=== PATIENT | female | born 1955 | race Caucasian/White ===

== ENCOUNTER 2019-05-25 10:03 | Emergency (ER) | payer MEDICARE, OTHER ==
[~2019-05-25] VITALS: Ht 162.6 cm; Wt 54.4 kg
[2019-05-25 10:03] VITALS: BP 131/76
--- NOTE | 2019-05-25 10:03 | NUR ---
Patient BIBA ALS from [facility], transferred to bed 7. RN evaluating patient at bedside.
--- NOTE | 2019-05-25 10:10 | NUR ---
64 Y/O F BIBA C/O SOB. PT UNABLE TO TAKE DEEP BREATHS, STATES NO PAIN, STARTED THIS MORNING. PT DENIES N/V/D. PT PUT ON 2 L 02 NC, POSITOINED HIGH FOWLERS, 02 95%. PT IS PALE IN COLOR, WITH DISTRESS. PT BED LOWERED, X2 SIDE RAILS IN PLACE. ALLERGIES: NSAIDS
--- NOTE | 2019-05-25 10:11 | NUR ---
Dr. Tobias is evaluating the patient at bedside.
--- NOTE | 2019-05-25 10:13 | NUR ---
EMT AT BEDSIDE PERFORMING EKG.
--- NOTE | 2019-05-25 10:15 | NUR ---
LAB AT BEDSIDE DRAWING ORDERED LABS.
[2019-05-25] MEDS ORDERED: FERR-252 PO (10:19)
[2019-05-25] MEDS ORDERED: ASCO500T45 PO (10:19)
[2019-05-25] MEDS ORDERED: PUL.25N INH (10:19)
[2019-05-25] MEDS ORDERED: BISO5TAB PO (10:19)
[2019-05-25] MEDS ORDERED: FURO-572 PO (10:19)
[2019-05-25] MEDS ORDERED: PRON INH (10:19)
[2019-05-25] MEDS ORDERED: POTA10TE30 PO (10:19)
[2019-05-25] MEDS ORDERED: WARF3TAB PO (10:19)
[2019-05-25] MEDS ORDERED: HAL1 PO (10:19)
[2019-05-25] MEDS ORDERED: FOLI1TAB90 PO (10:19)
[2019-05-25] MEDS ORDERED: NACL 0.9% 1,000 ML IV ONE (10:20)
[2019-05-25] MEDS ORDERED: DILTIAZEM 125 MG in DEXTROSE 5% 100 ML IV ONE (10:25)
[2019-05-25] MEDS ORDERED: DIGOXIN 0.25 MG/ML AMP IV ONE (10:25)
[2019-05-25 10:45] LABS: BASOPHILS # (AUTO) 0.1 K/uL (0.00-0.22); EOSINOPHILS % (AUTO) 0.3 % (0.0-4.0); HEMATOCRIT 41.9 % (36-48); HEMOGLOBIN 13.3 g/dL (12.0-16.0); LYMPHOCYTES # (AUTO) 1.4 K/uL (2.5-16.5); MEAN CORPUSCULAR HEMOGLOBIN 27 pg (27-31); MEAN CORPUSCULAR HGB CONC 32 g/dL (33-37); MEAN CORPUSCULAR VOLUME 85.9 fL (80-94); MONOCYTES # (AUTO) 0.9 K/uL (0.8-1.0); MONOCYTES % (AUTO) 11.8 % (1.7-9.3); NEUTROPHILS # (AUTO) 5.4 K/uL (1.8-7.7); NEUTROPHILS % (AUTO) 68.9 % (42.2-75.2); PLATELET COUNT (AUTO) 315 K/uL (140-450); RED BLOOD CELL COUNT(AUTO) 4.88 MIL/uL (4.20-5.40); RED CELL DISTRIBUTION WIDTH 17.1 % (11.6-13.7); WHITE BLOOD COUNT (AUTO) 7.8 K/uL (4.8-10.8)
[2019-05-25 11:00] LABS: ANION GAP 19.6 (8-16); CARBON DIOXIDE 21.9 mmol/L (21-32); CREATININE 1.2 mg/dL (0.6-1.3); POTASSIUM 4.5 mmol/L (3.5-5.1)
[2019-05-25 11:02] LABS: ACETONE, SERUM NEGATIVE (NEGATIVE)
[2019-05-25 11:09] LABS: C-REACTIVE PROTEIN QUANT 6.3 mg/dL (0.0-0.9)
[2019-05-25 11:15] LABS: ALBUMIN 2.8 g/dL (3.4-5.0); TOTAL BILIRUBIN 2.2 mg/dL (0.0-1.0)
[2019-05-25 11:17] LABS: MAGNESIUM 2.3 mg/dL (1.8-2.4); THYROID STIMULATING HORMONE 12.59 uIU/mL (0.34-3.74)
[2019-05-25] MEDS ORDERED: DILTIAZEM 25 MG/5 ML VIAL IVP ONE ×2 (11:25)
[2019-05-25 11:45] LABS: PROTHROMBIN TIME 33.7 secs (10.8-13.4)
--- NOTE | 2019-05-25 12:05 | NUR ---
Dr. Tobias is re-evaluating the patient at bedside.
--- NOTE | 2019-05-25 12:07 | NUR ---
PT UA DONE, HCG NEGATIVE.
--- NOTE | 2019-05-25 12:08 | NUR ---
XRAY AT BEDSIDE.
--- NOTE | 2019-05-25 12:08 | NUR ---
shipping technician at bedside.
[2019-05-25 12:28] LABS: APPEARANCE,URINE SL CLOUDY (CLEAR); BILIRUBIN,URINE 1+ (NEGATIVE); BLOOD, URINE NEGATIVE (NEGATIVE); COLOR,URINE DARK YELLOW (YELLOW); LEUKOCYTE ESTERASE ,URINE NEGATIVE (NEGATIVE); NITRITE, URINE POSITIVE (NEGATIVE); UGLUCOSE NEGATIVE (NEGATIVE)
[2019-05-25 12:36] LABS: BARBITURATE, URINE NEG. ng/ml (NEG <=200); BENZODIAZEPINE, URINE NEG. ng/mL (NEG <=200); CANNABINOID, URINE POS. ng/mL (NEG <=50); COCAINE, URINE NEG. ng/mL (NEG <=300); OPIATE, URINE NEG. ng/mL (NEG <=2000); PHENCYCLIDINE SCREEN,URINE NEG. ng/mL (NEG <=25)
[2019-05-25 12:43] LABS: RBC,URINE 0-5 /HPF (0-5); WBC,URINE 0-5 /HPF (0-5)
[2019-05-25 12:44] LABS: HYALINE CASTS, URINE 0-10 /LPF (None Seen)
[2019-05-25 12:48] LABS: URINE AMORPHOUS URATE 1+ /HPF (None Seen)
[2019-05-25] MEDS ORDERED: PIPERACILLIN/TAZOBACTAM 3.375 GM in DEXTROSE 5% 50 ML IV ONE (13:00)
[2019-05-25] MEDS ORDERED: ALBUMIN HUMAN 25% 50 ML IV ONE (13:00)
[2019-05-25] MEDS ORDERED: PIPERACILLIN/TAZOBACTAM 3.375 GM VIAL IV ONE (13:14)
--- NOTE | 2019-05-25 13:45 | NUR ---
PT BLOOD PRESSURE RECHECKED RT ARM, 95/63. CATHETER PLACEMENT CHECKED, CLEAR, YELLOW URINE DRAINING INTO BAG ATTACHED TO SIDE RAIL, 60ML COLLECTED. PT GIVEN APPLE JUICE AND APPLE SAUCE, EATING, DRINKING WITHOUT DIFFICULTY. IV NS AND ZOSYN RUNNING WITHOUT ADVERSE AFFECT. PT POSITIONED FOR COMFORT.
--- NOTE | 2019-05-25 14:23 | NUR ---
LAB AT BEDSIDE DRAWING ORDERED LAB WORK.
--- NOTE | 2019-05-25 16:43 | NUR ---
PT REPOSITIONED IN BED, [address], IV RUNNING WITH NS. IV SITE CLEAN, DRY, INTACT. PT GIVEN APPLE JUICE/CRACKERS/APPLESAUCE.
--- NOTE | 2019-05-25 17:09 | NUR ---
[facility] at bedside for transfer to [facility].
[2019-05-25 17:40] VITALS: BP 93/65
--- NOTE | 2019-05-25 17:41 | NUR ---
Patient to be transferred to [facility]. Is being transferred due to INSURANCE. Receiving facility has accepting physician and available space. ER physician has signed transfer form. Patient or responsible constitution party has agreed to transfer and signed form. Patient belongings inventoried and will be sent with patient. Copy of nursing notes, lab reports, EKG, Physicians Orders and X-rays to be sent with patient. Report called to OSMAN VELEZ at receiving facility. EMS ambulance service has been called for transfer. ETA is 1700.
--- NOTE | 2019-06-11 09:21 | NUR ---
Late entry. Confirmed with RN that Zosyn IV completed at 1430
== END 2019-05-25 17:41 | disposition short-term general hospital (02) ==
LOC: MED 10:03
DX: I50.9 Heart failure, unspecified (principal); I11.0 Hypertensive heart disease with heart failure; R00.0 Tachycardia, unspecified; I48.0 Paroxysmal atrial fibrillation; E87.2 Acidosis; E87.3 Alkalosis; R94.6 Abnormal results of thyroid function studies; F17.210 Nicotine dependence, cigarettes, uncomplicated; J44.9 Chronic obstructive pulmonary disease, unspecified; Z66 Do not resuscitate; Z98.890 Other specified postprocedural states; Z79.899 Other long term (current) drug therapy; Z88.8 Allergy status to other drugs, medicaments and biological substances
CPT/HCPCS: 36415; 36600; 51702; 71045; 80053; 80305; 81001; 82009; 82803; 83605; 83735; 83880; 84443; 84484; 85025; 85379; 85610; 86140; 87040; 87086; 93005; 96365; 96375; 99291; G0482; J1160; J2543; J3490; J7030; J7060; Q0092; P9046

== ENCOUNTER 2019-06-10 02:36 | Emergency (ER) | payer MEDICARE, OTHER ==
[~2019-06-10] VITALS: Ht 162.6 cm; Wt 81.6 kg
[~2019-06-10 02:36] MED LIST: ASCO500T45 PO; BISO5TAB PO; FERR-252 PO; FOLI1TAB90 PO; FURO-572 PO; HAL1 PO; POTA10TE30 PO; PRON INH; PUL.25N INH; WARF3TAB PO
[2019-06-10] MEDS ORDERED: DILTIAZEM 25 MG/5 ML VIAL IVP ONE ×3 (02:40→11:55)
[2019-06-10] MEDS ORDERED: NACL 0.9% 500 ML IV SCH (02:40)
[2019-06-10 02:45] VITALS: BP 202/172
--- NOTE | 2019-06-10 02:45 | NUR ---
PT C/O SOB ADN C/P X 1 DAY. PT STATES NOT FEELING WELL, DOCTOR AT [facility] EXTRENDED NOT LISTENING TO HER. PT CALLED 911 FOR SOB, EMS STATE PT IN A-FIB RVR AT 170. PT SOB, PT PLACED ON 2 LPM BY EMS. PT HAS HX OF A-FIB. 18G RIGHT AC STARTED BY EMS. PT APPEARS TO BE IN MILD DISTRESS. PT DEEP LABORED BREATHING. PT LUNGS CLEAR. 12 LEAD BY EMS AND HOSPTIAL SHOWING A-BIF RVR. DR. YORK MADE AWARE OF PT CONDITION. PT GIVEN 20MG OF CARDIZEM. PT HR IMPROVED TO 100S. PT STATES NOT FEELING SOB ANYMORE. PT BP IMPROVED WELL.
[2019-06-10 04:16] LABS: BASOPHILS # (AUTO) 0.1 K/uL (0.00-0.22); BASOPHILS % (AUTO) 1.4 % (0.0-2.0); EOSINOPHILS % (AUTO) 0.1 % (0.0-4.0); HEMATOCRIT 41.2 % (36-48); HEMOGLOBIN 12.9 g/dL (12.0-16.0); LYMPHOCYTES # (AUTO) 1.6 K/uL (2.5-16.5); LYMPHOCYTES % (AUTO) 20.1 % (20.5-51.1); MEAN CORPUSCULAR HEMOGLOBIN 26 pg (27-31); MEAN CORPUSCULAR HGB CONC 31 g/dL (33-37); MEAN CORPUSCULAR VOLUME 84.3 fL (80-94); MONOCYTES # (AUTO) 0.8 K/uL (0.8-1.0); MONOCYTES % (AUTO) 10.8 % (1.7-9.3); NEUTROPHILS # (AUTO) 5.3 K/uL (1.8-7.7); NEUTROPHILS % (AUTO) 67.6 % (42.2-75.2); PLATELET COUNT (AUTO) 215 K/uL (140-450); RED BLOOD CELL COUNT(AUTO) 4.88 MIL/uL (4.20-5.40); RED CELL DISTRIBUTION WIDTH 18.2 % (11.6-13.7); WHITE BLOOD COUNT (AUTO) 7.9 K/uL (4.8-10.8)
--- NOTE | 2019-06-10 04:22 | NUR ---
PT APPEARS TO BE IN NO DISTRESS. PT STATES FEELING BETTER. PT DENIES SOB AT THIS TIME. PT HR 100S. PT PLAYING ON IPAD. PT VSS. LETY MCCALL PT FOR URINE SAMPLE.
[2019-06-10 04:28] LABS: APPEARANCE,URINE CLEAR (CLEAR); BILIRUBIN,URINE NEGATIVE (NEGATIVE); BLOOD, URINE NEGATIVE (NEGATIVE); COLOR,URINE YELLOW (YELLOW); LEUKOCYTE ESTERASE ,URINE NEGATIVE (NEGATIVE); NITRITE, URINE POSITIVE (NEGATIVE); PH,URINE 5.5 (5.0-9.0); UGLUCOSE NEGATIVE (NEGATIVE)
[2019-06-10 04:36] LABS: PROTHROMBIN TIME 22.9 secs (10.8-13.4)
--- NOTE | 2019-06-10 04:45 | NUR ---
PT HR INCREASING TO 130s. DR. TUTTLE MADE AWARE
[2019-06-10 04:47] LABS: RBC,URINE 0-5 /HPF (0-5); WBC,URINE 0-5 /HPF (0-5)
[2019-06-10] MEDS ORDERED: DILTIAZEM 30 MG TAB PO ONE (04:50)
[2019-06-10 04:55] LABS: ANION GAP 16.4 (8-16); CARBON DIOXIDE 22.8 mmol/L (21-32); CREATININE 0.9 mg/dL (0.6-1.3); POTASSIUM 4.2 mmol/L (3.5-5.1)
[2019-06-10 05:01] LABS: ALBUMIN 2.4 g/dL (3.4-5.0); TOTAL BILIRUBIN 1.6 mg/dL (0.0-1.0)
[2019-06-10] MEDS ORDERED: ASPIRIN 81 MG TAB.CHEW PO ONE (05:20)
--- NOTE | 2019-06-10 05:24 | NUR ---
PT GOINGTO BE TRANSFERRED TO [facility]. PT APPEARS TO BE IN NO DISTRESS. VSS. PT HR NOW 98-105. PT BP 103/63. PT DENIES SOB. VSS. WILL CONTINUE TO MONIOR.
[2019-06-10] MEDS ORDERED: LEVOFLOXACIN 500 MG/D5W PREMIX 100 ML IV ONE (05:25)
--- NOTE | 2019-06-10 06:30 | NUR ---
PT APPEARS TO BE IN NO DISTRESS AT RHIS TIME. VSS. NO CHANGES FROM PREVIOUS ASSESSMENT. WAITING FOR TRANSPORT.
--- NOTE | 2019-06-10 07:11 | NUR ---
REPORT GIVEN TO STEFANIA BREWER
--- NOTE | 2019-06-10 09:12 | NUR ---
ALERT ORIENTED X 4 PT ON O2 @ 3LPM, SPO2 96% ON 3LPM VIA NC, CANDIDO SOB OR CP, RR 20 EVEN AND EQUAL, HR 121, BP 101/72 ON MONITOR, INFORMED OF TRANSFER TO [facility] WILL CONTINUE TO MONITOR
--- NOTE | 2019-06-10 09:36 | NUR ---
REPORT GIVEN TO OSMAN MARTINEZ FROM [facility] . ACCEPTING MD DR Marlene RAO. PT GOING TO ROOM # 5365-V
--- NOTE | 2019-06-10 11:31 | NUR ---
[facility] CALLED ETA CHANGED FROM 1010 TO 1200 NOON D/T HIGH VOLUME CALL PT AND PT'S DAUGHTER ROXI NOTIFIED. [facility] WILL BE NOTIFIED UPON [facility] ARRIVAL.
[2019-06-10] MEDS ORDERED: NACL 0.9% 1,000 ML IV ONE (11:55)
--- NOTE | 2019-06-10 12:32 | NUR ---
fidelina on hold d/t bp notified
--- NOTE | 2019-06-10 12:45 | NUR ---
STILL WAITING FOR [facility] FOR TRANSPORT TO [facility]
--- NOTE | 2019-06-10 13:01 | NUR ---
Patient to be transferred to [facility]. Is being transferred due to need higher level of care. Receiving facility has accepting physician and available space. ER physician has signed transfer form. Patient or responsible green party has agreed to transfer and signed form. Patient belongings inventoried and will be sent with patient. Copy of nursing notes, lab reports, EKG, Physicians Orders and X-rays to be sent with patient. Report called to OSMAN Fierro at receiving facility [facility]. Report given to OSMAN Faustin from [facility]. OSMAN Fierro at [facility] updated.
[2019-06-10 13:04] VITALS: BP 96/73
--- NOTE | 2019-06-13 08:40 | NUR ---
Late entry. Confirmed with RN that 0.9 NS IV completed at 1300
== END 2019-06-10 13:01 | disposition short-term general hospital (02) ==
LOC: MED 02:36
DX: I48.20 Chronic atrial fibrillation, unspecified (principal); I50.9 Heart failure, unspecified; R79.89 Other specified abnormal findings of blood chemistry; N39.0 Urinary tract infection, site not specified; J44.9 Chronic obstructive pulmonary disease, unspecified; I10 Essential (primary) hypertension; Z79.899 Other long term (current) drug therapy; Z88.8 Allergy status to other drugs, medicaments and biological substances
CPT/HCPCS: 36415; 36600; 71045; 80053; 81001; 82803; 83605; 83880; 84484; 85025; 85610; 85730; 87040; 87086; 93005; 96365; 96375; 96376; 99285; J1956; J3490; J7030; Q0092

== ENCOUNTER 2019-06-30 19:47 | Inpatient (IN) | payer MEDICARE, OTHER ==
[~2019-06-30] VITALS: Ht 160 cm; Wt 68.5 kg
--- NOTE | 2019-06-30 19:51 | NUR ---
PT TAKEN TO BED 2
[2019-06-30 19:56] VITALS: BP 123/69
--- NOTE | 2019-06-30 20:20 | NUR ---
PATIENT DOES NOT HAVE BILATERAL PITTING EDEMA, MISTAKE IN CHARTING
--- NOTE | 2019-06-30 20:20 | NUR ---
64 YEAR OLD FEMALE BIBA FOR COMPLAINS OF NON-RADIATING CHEST PAIN X2 HOURS. PATIENT STATES PAIN IS CONTINOUS SQUEEZING FEELING. PT DENIES SOB, DENIES N/V. NSR PER EMS. PATIENT HAS BILATERAL PITTING EDEMA LOWER EXTREMITIES. HR 94, SPO2 98%, RR 20. PATIENT AOX4, BREATHING EVEN AND UNLABORED, SKIN WARM AND DRY. BED IN LOWEST POSITION, LOCKED, BED RAIL UPX1.
--- NOTE | 2019-06-30 20:35 | NUR ---
EKG PERFORMED AT BEDSIDE
[2019-06-30 21:55] LABS: BASOPHILS # (AUTO) 0.1 K/uL (0.00-0.22); EOSINOPHILS # (AUTO) 0.1 K/uL (0-0.4); EOSINOPHILS % (AUTO) 0.8 % (0.0-4.0); HEMOGLOBIN 12.6 g/dL (12.0-16.0); LYMPHOCYTES # (AUTO) 2.1 K/uL (2.5-16.5); LYMPHOCYTES % (AUTO) 25.2 % (20.5-51.1); MEAN CORPUSCULAR HEMOGLOBIN 26 pg (27-31); MEAN CORPUSCULAR HGB CONC 32 g/dL (33-37); MEAN CORPUSCULAR VOLUME 82.5 fL (80-94); MONOCYTES # (AUTO) 1.2 K/uL (0.8-1.0); MONOCYTES % (AUTO) 13.8 % (1.7-9.3); NEUTROPHILS % (AUTO) 59.2 % (42.2-75.2); PLATELET COUNT (AUTO) 215 K/uL (140-450); RED BLOOD CELL COUNT(AUTO) 4.85 MIL/uL (4.20-5.40); RED CELL DISTRIBUTION WIDTH 18.3 % (11.6-13.7); WHITE BLOOD COUNT (AUTO) 8.4 K/uL (4.8-10.8)
[2019-06-30 22:33] LABS: ALBUMIN 2.6 g/dL (3.4-5.0); ANION GAP 12.2 (8-16); CARBON DIOXIDE 28.9 mmol/L (21-32); CREATININE 0.8 mg/dL (0.6-1.3); POTASSIUM 4.1 mmol/L (3.5-5.1); TOTAL BILIRUBIN 0.6 mg/dL (0.0-1.0)
--- NOTE | 2019-06-30 22:56 | NUR ---
PATIENT RESTING WITH EYES CLOSED, BREATHING EVEN AND UNLABORED
[2019-06-30] MEDS ORDERED: NACL 0.9% 1,000 ML IV SCH (23:46)
[2019-06-30] MEDS ORDERED: DOCUSATE SODIUM 100 MG GELCAP PO PRN (23:50)
[2019-06-30] MEDS ORDERED: MORPHINE SULFATE 2 MG/ML SYR IVP PRN (23:50)
[2019-06-30] MEDS ORDERED: HYDROcodone/APAP 5/325 MG 1 TAB TAB PO PRN (23:50)
[2019-06-30] MEDS ORDERED: ONDANSETRON 4 MG/2 ML VIAL IM/IVP PRN (23:50)
[2019-06-30] MEDS ORDERED: ACETAMINOPHEN 325 MG TAB PO PRN (23:50)
[2019-07-01 01:25] LABS: APPEARANCE,URINE CLOUDY (CLEAR); BILIRUBIN,URINE NEGATIVE (NEGATIVE); BLOOD, URINE NEGATIVE (NEGATIVE); COLOR,URINE YELLOW (YELLOW); LEUKOCYTE ESTERASE ,URINE 1+ (NEGATIVE); NITRITE, URINE POSITIVE (NEGATIVE); PH,URINE 7.5 (5.0-9.0); UGLUCOSE NEGATIVE (NEGATIVE)
[2019-07-01 01:31] LABS: BARBITURATE, URINE NEG. ng/ml (NEG <=200); BENZODIAZEPINE, URINE NEG. ng/mL (NEG <=200); CANNABINOID, URINE NEG. ng/mL (NEG <=50); COCAINE, URINE NEG. ng/mL (NEG <=300); OPIATE, URINE NEG. ng/mL (NEG <=2000); PHENCYCLIDINE SCREEN,URINE NEG. ng/mL (NEG <=25)
[2019-07-01 01:38] LABS: MAGNESIUM 1.9 mg/dL (1.8-2.4); PHOSPHORUS 3.3 mg/dL (2.5-4.9); THYROID STIMULATING HORMONE 8.86 uIU/mL (0.34-3.74)
--- NOTE | 2019-07-01 01:40 | NUR ---
0.9 NACL ADMINISTERED ORDERED
[2019-07-01 01:52] LABS: PROTHROMBIN TIME 15.7 secs (10.8-13.4)
[2019-07-01 01:55] LABS: RBC,URINE 0-5 /HPF (0-5)
--- NOTE | 2019-07-01 02:30 | NUR ---
PATIENT RESTING WITH EYES CLOSED, BREATHING EVEN AND UNLABORED
[2019-07-01] MEDS ORDERED: VALP250S5 PO (03:05)
[2019-07-01] MEDS ORDERED: ALBU3SOL83 IH (03:05)
[2019-07-01] MEDS ORDERED: WARF3TAB PO ×2 (03:07→11:35)
[2019-07-01] MEDS ORDERED: DOCU250S72 PO (03:07)
[2019-07-01] MEDS ORDERED: PUL.5N INH ×2 (03:09→11:35)
--- NOTE | 2019-07-01 03:50 | NUR ---
PATIENT RESTING WITH EYES CLOSED, BREATHING EVEN AND UNLABORED
--- NOTE | 2019-07-01 05:30 | NUR ---
PATIENT ALERT AND ORIENTED, BREATHING EVEN AND UNLABORED
[2019-07-01] MEDS ORDERED: NITROGLYCERIN 0.4 MG TAB SL PRN (06:00)
--- NOTE | 2019-07-01 06:30 | NUR ---
PATIENT ALERT AND ORIENTED, BREATHING EVEN AND UNLABORED
[2019-07-01 06:42] LABS: BASOPHILS # (AUTO) 0.1 K/uL (0.00-0.22); BASOPHILS % (AUTO) 1.1 % (0.0-2.0); EOSINOPHILS # (AUTO) 0.1 K/uL (0-0.4); EOSINOPHILS % (AUTO) 0.9 % (0.0-4.0); HEMATOCRIT 40.5 % (36-48); HEMOGLOBIN 12.7 g/dL (12.0-16.0); LYMPHOCYTES # (AUTO) 1.9 K/uL (2.5-16.5); LYMPHOCYTES % (AUTO) 25.7 % (20.5-51.1); MEAN CORPUSCULAR HEMOGLOBIN 26 pg (27-31); MEAN CORPUSCULAR HGB CONC 31 g/dL (33-37); MEAN CORPUSCULAR VOLUME 82.7 fL (80-94); MONOCYTES # (AUTO) 0.9 K/uL (0.8-1.0); MONOCYTES % (AUTO) 12.6 % (1.7-9.3); NEUTROPHILS # (AUTO) 4.4 K/uL (1.8-7.7); NEUTROPHILS % (AUTO) 59.7 % (42.2-75.2); PLATELET COUNT (AUTO) 217 K/uL (140-450); RED CELL DISTRIBUTION WIDTH 18.2 % (11.6-13.7); WHITE BLOOD COUNT (AUTO) 7.4 K/uL (4.8-10.8)
[2019-07-01 06:59] LABS: ANION GAP 12.4 (8-16); CARBON DIOXIDE 26.7 mmol/L (21-32); CREATININE 0.7 mg/dL (0.6-1.3); POTASSIUM 4.1 mmol/L (3.5-5.1)
[2019-07-01 07:03] LABS: CHOL/HDL RATIO 2.5 (1-4.5)
[2019-07-01 07:25] VITALS: BP 95/73
--- NOTE | 2019-07-01 07:25 | NUR ---
RECEIVED PATIENT FROM FURNITURE RENTAL CONSULTANT NURSEMARIMAR, VIA [facility]. PATIENT AMBULATED TO THE ROOM. PATIENT IS AAOX2. RESPIRATIONS EVEN AND UNLABORED, ON ROOM AIR. VISIBLE CHEST RISE NOTED. ON TELE MONITORING. ABDOMEN SOFT AND NONTENDER. SKIN INTACT, WARM AND DRY. IV ON THE RIGHT HAND G22, SALINE LOCK. IV PATENT AND INTACT. PATIENT IS AMBULATORY. BED IN LOW POSITION. CALL LIGHT IS WITHIN REACH. WILL CONTINUE TO MONITOR
--- NOTE | 2019-07-01 07:25 | NUR ---
Patient will be admitted to care of DR CAAL. Admited to TELE. Will go to room 112B. Belongings list completed. Report to PRINCESS BREWER.
--- NOTE | 2019-07-01 07:28 | NUR ---
VITAL SIGNS TAKEN. MRSA NARES COLLECTED
[2019-07-01] MEDS ORDERED: hePARIN / DEXT 5% PREMIX 250 ML IV SCH (08:00)
[2019-07-01] MEDS ORDERED: HEPARIN PER PHARMACY MC PRN (08:00)
[2019-07-01] MEDS ORDERED: ASPIRIN 81 MG TAB.CHEW PO SCH (09:00)
[2019-07-01] MEDS: ATORVASTATIN 20 MG TAB PO SCH (09:00)
[2019-07-01] MEDS: METOPROLOL 25 MG TAB PO SCH ×2 (09:00→21:00)
[2019-07-01] MEDS: LISINOPRIL 5 MG TAB PO SCH (09:00)
[2019-07-01] MEDS: hePARIN / DEXT 5% PREMIX 250 ML IV SCH ×2 (09:58→19:51)
--- NOTE | 2019-07-01 10:15 | NUR ---
STARTED HEPARIN DRIP 700 UNITS/HR IN THE LEFT HAND IV. BOLUS OF 3500 UNITS. EXPLAINED TO PATIENT MEDICATION. PATIENT VERBALIZED UNDERSTANDING. HELD BP MEDS BECAUSE PT. BP IS 95/73. ALSO STARTED IV IN THE RIGHT AC G20, RUNNING NS AT 60 ML/HR
--- NOTE | 2019-07-01 10:40 | NUR ---
CHECKED PATIENT. NO SIGNS OF BLEEDING NOTED. PATIENT DENIES CHEST PAIN. BED IN LOW. CALL LIGHT IS WITHIN REACH. WILL CONTINUE TO MONITOR
[2019-07-01] MEDS: FUROSEMIDE 40 MG/4 ML VIAL IVP SCH (10:46)
--- NOTE | 2019-07-01 10:47 | NUR ---
GIVEN LASIX VIA IVP. EXPLAINED TO PATIENT MED. BP: 110/64, HR 56;. PATIENT VERBALIZED UNDERSTANDING. BED IN LOW POSITION. CALL LIGHT IS WITHIN REACH. WILL CONTINUE TO MONITOR.
[2019-07-01] MEDS ORDERED: FURO-572 PO (11:35)
[2019-07-01] MEDS ORDERED: POTA10TE30 PO (11:35)
[2019-07-01] MEDS ORDERED: FOLI1TAB90 PO (11:35)
[2019-07-01] MEDS ORDERED: BISO5TAB PO (11:35)
[2019-07-01] MEDS ORDERED: FERR-252 PO (11:35)
[2019-07-01] MEDS ORDERED: PRON INH (11:35)
[2019-07-01] MEDS ORDERED: ASCO500T45 PO (11:35)
[2019-07-01] MEDS ORDERED: ALBUTEROL 0.083% 2.5 MG/3 ML NEBU INH PRN (11:45)
[2019-07-01] MEDS ORDERED: ALBUTEROL SULFATE/IPRATROPIU 3 ML SOL IH PRN (11:45)
--- NOTE | 2019-07-01 11:49 | NUR ---
HANG ROCEPHIN VIA IVPB. EXPLAINED TO PATIENT MED. PATIENT VERBALIZED UNDERSTANDING. WILL CONTINUE TO MONITOR
[2019-07-01] MEDS: DEXT 5% /NACL 0.9% 1,000 ML IV SCH (11:55)
[2019-07-01 12:00] VITALS: BP 110/68
--- NOTE | 2019-07-01 13:12 | NUR ---
CHANGED IVF FROM NS TO D51/2NS AT 60 ML/HR.
--- NOTE | 2019-07-01 14:04 | NUR ---
PATIENT IS AWAKE. DENIES CHEST PAIN. DAUGHTER AT BEDSIDE. BED IN LOW POSITION. CALL LIGHT IS WITHIN REACH. WILL CONTINUE TO MONITOR
--- NOTE | 2019-07-01 14:59 | NUR ---
PATIENT IS SLEEPING AT THIS TIME. NO SIGNS OF BLEEDING. NO SIGNS OF DISTRESS NOTED. DAUGHTER AT BEDSIDE. WILL CONTINUE TO MONITOR
[2019-07-01 16:00] VITALS: BP 117/95
--- NOTE | 2019-07-01 16:12 | NUR ---
VITAL SIGNS TAKEN. PATIENT DENIES PAIN. BED IN LOW POSITION. CALL LIGHT IS WITHIN REACH. WILL CONTINUE TO MONITOR
--- NOTE | 2019-07-01 16:23 | NUR ---
MADE ROUNDS. PATIENT DENIES CHEST PAIN. NO BLEEDING NOTED ANYWHERE. NO DISTRESS NOTED. BED IN LOW POSITION. CALL LIGHT IS WITHIN REACH. WILL CONTINUE TO MONITOR.
--- NOTE | 2019-07-01 17:08 | NUR ---
DC PLANNING FAXED THE POST STABILIZATION FORM TO [facility] [phone] Addendum: 07/02/19 at 1201 by Thi Quezada CM 0905: CONTACTED [facility] AT [phone], ABLE TO SPEAK TO REHAN PASCUAL. SHE STATED THEY DO NOT HAVE AN ASSIGNED DIRECTOR OF STRATEGIC MARKETING TO THE PATIENT UNTIL 929. POST STABILIZATION FORM FAXED WELL. 1145: CONTACTED [facility] AGAIN TO FOLLOW UP, ABLE TO SPEAK TO TANI PASCUAL. SHE STATED THE ASSIGNED DIRECTOR OF STRATEGIC MARKETING TODAY IS M[facility] HOWEVER SHE WILL TRANSFER ME TO REYNA PASCUAL. REYNA CONFIRMED THAT THEY RECEIVED THE PAPER WORKS I FAXED EARLIER. SHE STATED SHE WILL LET HER DIRECTOR OF STRATEGIC MARKETING KNOW AND THEY WILL START THE TRANSFER PROCESS. INFORMED HER THAT PATIENT IS ON HEPARIN DRIP AND CTA WAS ORDERED PENDING RESULT. SHE STATED ONCE WE GET THE RESULTS TO FAX IT OVER TO THEM. Addendum: 07/02/19 at 1218 by Thi Quezada CM RECEIVED A CALL FROM [facility] TO FOLLOW UP WITH THE CTA RESULTS. RESULTS FAXED TO [facility]. Addendum: 07/02/19 at 1734 by Jessica Olson 17:15 - Spoke to pt's nurse who stated [facility] called asking for an update on pt's condition (lab values, BP, results of CTA) 17:25 - Follow-up call made to [facility] Mimi BARAHONA, to follow-up on pt's transfer and authorization (last update stated case was denied). Per Shannon, she's still working on the transfer however they have no beds available. Shannon stated pt can possibly transfer to [facility]. Requested an update on authorization, per Shannon she's been busy transferring other patients. I requested an updated authorization to be faxed today; Will continue following up as needed. Jessica Olson, [facility] Ext [phone]
--- NOTE | 2019-07-01 18:42 | NUR ---
PATIENT IS REFUSING DINNER.
--- NOTE | 2019-07-01 19:10 | NUR ---
ENDORSED PATIENT TO COAL CHUTE WORKER NURSE FOR CONTINUITY OF CARE. PATIENT IS IN STABLE CONDITION.
--- NOTE | 2019-07-01 19:24 | NUR ---
PTT RESULTS IN. LOG CUT OFF SAWYER NURSE IS AWARE.
--- NOTE | 2019-07-01 19:25 | NUR ---
RECEIVED PT IN STABLE CONDITION FROM AM NURSE. AWAKE,ALERT AND ORIENTED X 4. BUT WITH PERIODS OF FORGETFULNESS/CONFUSION DUE TO DEMENTIA. ON TELE MONITOR. WITH UVF INFUSING ON THE LEFT AC G#20. AND HEPARIN DRIP ON THE RT FA g#22. PLAN OF CARE DISCUSSED AND VERBALIZED UNDERSTANDING. BED ON LOW POSITION. SIDE RAILS UP X2. CALL LIGHT PLACED WITHIN EASY REACH. BED ALARM ON. WILL CONTINUE TO MONITOR.
[2019-07-01] MEDS ORDERED: BUDESONIDE 0.5 MG/2 ML NEBU INH SCH ×2 (19:30→21:00)
--- NOTE | 2019-07-01 19:50 | NUR ---
PTT RESULT CAME 41.9 HEPARIN PROTOCOL FOLLOWED. NEXT PTT ORDERED FOR 0150.
[2019-07-01 21:00] VITALS: BP 99/55
[2019-07-01] MEDS: AMIODARONE 200 MG TAB PO SCH ×2 (21:00→22:24)
[2019-07-01] MEDS ORDERED: BISOPROLOL FUMARATE 5 MG PO SCH (21:00)
--- NOTE | 2019-07-01 22:20 | NUR ---
FABIAN GUO MADE AWARE THAT BP IS LOW 99/60. SHE SAID GO AHEAD AND GIVE THE AMIODARONE BUT HOLD THE LOPRESSOR.
--- NOTE | 2019-07-01 23:00 | NUR ---
PT CONFUSED. WANTS TO REMOVE IV . DR. PERALTA MADE AWARE. WITH ORDER.
[2019-07-01] MEDS ORDERED: OLANZapine 2.5 MG TAB PO SCH (23:30)
[2019-07-02] VITALS (8 sets, daily range): BP systolic 91–104; BP diastolic 43–73
--- NOTE | 2019-07-02 00:28 | NUR ---
PT REFUSED TO RKAE ZYPREXA EARLIER . BUT ABLE TO TAKE IT NOW. HAD SOME SODA WITH IT.
--- NOTE | 2019-07-02 01:55 | NUR ---
BLOOD WAS DRAWN FOR PTT. WILL FOLLOW UP RESULT.
--- NOTE | 2019-07-02 02:58 | NUR ---
LATEST PTT 45.6 NO CHANGE ON THE RATE. KEPT THE 800 UNITS /HR PER PROTOCOL. WILL ORDER NEXT PTT IN 6HRS W/C WILL BE 0750.
--- NOTE | 2019-07-02 05:20 | NUR ---
NEW IV ACCESS STARTED ON RT AC G#[address] . IV ACCESS CLEAR AND PATENT.
--- NOTE | 2019-07-02 05:30 | NUR ---
PT FOR CT ANGIO CHEST . PT SAID SHE HAD IV CONTRAST BEFORE AND SHE DIDN'T HAVE ANY REACTION. CONSENT SIGNED AFTER EXPLAINED THE PROCEDURE.
--- NOTE | 2019-07-02 05:50 | NUR ---
PHU,CLINICAL INFORMATICS PHYSICIAN MADE AWARE THAT PT IS READY FOR THE CT THIS AM.
--- NOTE | 2019-07-02 07:05 | NUR ---
ENDORSED PT IN STABLE CONDITION TO AM NURSE.
--- NOTE | 2019-07-02 07:15 | NUR ---
PATIENT IS AAOX2. RESPIRATIONS EVEN AND UNLABORED, ON ROOM AIR. VISIBLE CHEST RISE NOTED. PATIENT DENIES CHEST PAIN. ON TELE MONITORING. ABDOMEN SOFT AND NONTENDER. SKIN INTACT, WARM AND DRY. IV ON THE RIGHT HAND G22, RUNNING HEPARIN AT 800 UNITS/HR. IV IN THE LEFT RA G20 RUNNING FLUIDS WELL. IV IN THE RIGHT FOREARM G20, SALINE LOCK. IV PATENT AND INTACT. PATIENT IS AMBULATORY. BED IN LOW POSITION. CALL LIGHT IS WITHIN REACH. WILL CONTINUE TO MONITOR
[2019-07-02] MEDS ORDERED: FERROUS SULFATE 325 MG TABEC PO SCH (09:00)
[2019-07-02] MEDS: METOPROLOL 25 MG TAB PO SCH ×2 (09:00→21:00)
[2019-07-02] MEDS ORDERED: ASCORBIC ACID 500 MG TAB PO SCH (09:00)
[2019-07-02] MEDS ORDERED: POTASSIUM CHLORIDE 10 MEQ TABER PO SCH (09:00)
[2019-07-02] MEDS: ATORVASTATIN 20 MG TAB PO SCH (09:00)
[2019-07-02] MEDS: LISINOPRIL 5 MG TAB PO SCH (09:00)
[2019-07-02] MEDS ORDERED: FOLIC ACID 1 MG TAB PO SCH (09:00)
[2019-07-02] MEDS: FUROSEMIDE 40 MG/4 ML VIAL IVP SCH (09:00)
[2019-07-02 09:18] LABS: BASOPHILS # (AUTO) 0.1 K/uL (0.00-0.22); BASOPHILS % (AUTO) 1.5 % (0.0-2.0); EOSINOPHILS % (AUTO) 0.6 % (0.0-4.0); HEMATOCRIT 45.2 % (36-48); HEMOGLOBIN 14.3 g/dL (12.0-16.0); LYMPHOCYTES % (AUTO) 26.4 % (20.5-51.1); MEAN CORPUSCULAR HEMOGLOBIN 26 pg (27-31); MEAN CORPUSCULAR HGB CONC 32 g/dL (33-37); MEAN CORPUSCULAR VOLUME 82.5 fL (80-94); MONOCYTES # (AUTO) 0.9 K/uL (0.8-1.0); MONOCYTES % (AUTO) 11.4 % (1.7-9.3); NEUTROPHILS # (AUTO) 4.5 K/uL (1.8-7.7); NEUTROPHILS % (AUTO) 60.1 % (42.2-75.2); PLATELET COUNT (AUTO) 276 K/uL (140-450); RED BLOOD CELL COUNT(AUTO) 5.48 MIL/uL (4.20-5.40); RED CELL DISTRIBUTION WIDTH 17.9 % (11.6-13.7); WHITE BLOOD COUNT (AUTO) 7.5 K/uL (4.8-10.8)
--- NOTE | 2019-07-02 09:27 | NUR ---
GIVEN MORNING MEDICATIONS PO. EXPLAINED TO PATIENT MEDS. PATIENT VERBALIZED UNDERSTANDING. BED IN LOW POSITIN. CALL LIGHT IS WITHIN REACH. NO BLEEDING NOTED. NO CHEST PAIN.
[2019-07-02 09:41] LABS: ALBUMIN 2.9 g/dL (3.4-5.0); ANION GAP 15.5 (8-16); CARBON DIOXIDE 25.3 mmol/L (21-32); CREATININE 0.8 mg/dL (0.6-1.3); PHOSPHORUS 3.5 mg/dL (2.5-4.9); POTASSIUM 3.8 mmol/L (3.5-5.1); TOTAL BILIRUBIN 0.9 mg/dL (0.0-1.0)
[2019-07-02] MEDS ORDERED: AMIODARONE 200 MG TAB PO SCH (10:15)
--- NOTE | 2019-07-02 10:20 | NUR ---
PT. IS OFF TO CAT SCAN. RN ACCOMPANIED PATIENT BECAUSE OF HEPARIN DRIP.
--- NOTE | 2019-07-02 10:42 | NUR ---
PATIENT IS BACK FROM CT SCAN. PATIENT REQUESTED ORANGE JUICE. GAVE IT TO PATIENT
--- NOTE | 2019-07-02 10:45 | NUR ---
PTT RESULTS IN. 40.4. NO CHANGE IN RATE. CHARGE NURSE AWARE. NEXT PTT DRAW IS AT 7:50AM 07/03/19. Addendum: 07/02/19 at 1947 by Princess Roopa Jimenez RN PTT RESULTS IN 40.4. WILL FOLLOW PROTOCOL.
[2019-07-02] MEDS: DEXT 5% /NACL 0.9% 1,000 ML IV SCH (11:55)
--- NOTE | 2019-07-02 12:42 | NUR ---
HANG ROCEPHIN VIA IVPB. EXPLAINED TO PATIENT MED. PATIENT VERBALIZED UNDERSTANDING. PATIENT IS EATING LUNCH AT THIS TIME. DENIES CHEST PAIN. WILL CONTINUE TO MONITOR
--- NOTE | 2019-07-02 14:41 | NUR ---
PATIENT IS SLEEPING AT THIS TIME. VISIBLE CHEST RISE NOTED. BED IN LOW POSITION. CALL LIGHT IS WITHIN REACH. WILL CONTINUE TO MONITOR
--- NOTE | 2019-07-02 15:59 | NUR ---
DISCONTINUED LEFT AC IV SITE BECAUSE PATIENT C/O EXTREME PAIN IN THE AREA. APPLIED PRESSURE FOR 5 MINUTES
--- NOTE | 2019-07-02 16:24 | NUR ---
07/02/19 RD INITIAL ASSESSMENT COMPLETED PLEASE REFER TO NUTRITION ASSESSMENT UNDER CARE ACTIVITY FOR ESTIMATED NUTRITIONAL NEEDS. 1. CONTINUE CARDIAC DIET TOLERATED 2. PROVIDE FEEDING ASSISTANCE W/ MEALS 3. RD TO FOLLOW-UP 3-5 DAYS, MODERATE RISK ISMAEL FLETCHER RD
--- NOTE | 2019-07-02 16:56 | NUR ---
PATIENT IS RESTING AT THIS TIME. NO CHEST PAIN. NO SIGNS OF BLEEDING. WILL CONTINUE TO MONITOR. BED IN LOW POSITION. CALL LIGHT IS WITHIN REACH.
--- NOTE | 2019-07-02 17:07 | NUR ---
PATIENT PULLED IV IN THE LEFT FOREARM. MINIMAL BLEEDING
--- NOTE | 2019-07-02 18:18 | NUR ---
MAHAD ORELLANA OF [facility] CALLED REGARDING PT. TRANSFER TO [facility]. REYNA STATED THAT [facility] PT WILL BE UNDER DR. STANLEY. [facility] PHONE NUMBER IS: [phone]. REYNA'S PHONE NUMBER IS [phone].
--- NOTE | 2019-07-02 18:20 | NUR ---
CALLED REYNA BACK. PATIENT IS REQUESTING PERRYTON ROBBIE. REYNA IS TALKING TO LETY, PATIENT'S DAUGHTER REGARDING TRANSFER
--- NOTE | 2019-07-02 18:23 | NUR ---
PATIENT IS GOING TO [facility]. PATIENT AND FAMILY IS OKAY WITH PATIENT GOING TO [facility]. PATIENT PICKUP IS AT 2100.
[2019-07-02] MEDS ORDERED: AMIO200T10 PO (18:31)
[2019-07-02] MEDS ORDERED: LISI-424 PO (18:31)
[2019-07-02] MEDS ORDERED: METO25TA PO (18:31)
[2019-07-02] MEDS ORDERED: NITR0.4T1 SL (18:31)
[2019-07-02] MEDS ORDERED: HEPA-133 IV (18:31)
--- NOTE | 2019-07-02 18:34 | NUR ---
PATIENT IS GOING TO [facility] NOT [facility]. PT. AND FAMILY ARE AWARE. DR. PERALTA AND CHARGE NURSE ALSO AWARE.
[2019-07-02] MEDS: hePARIN / DEXT 5% PREMIX 250 ML IV SCH (19:18)
--- NOTE | 2019-07-02 19:18 | NUR ---
HANG NEW BAG OF HEPARIN. BOLUS OF 1800 UNITS OF HEPARIN IVP. RATE IS INCREASED TO 900 UNITS/HR.
--- NOTE | 2019-07-02 19:21 | NUR ---
ENDORSED PATIENT TO JAVA ANALYST NURSE FOR CONTINUITY OF CARE. PATIENT IS IN STABLE CONDITION
--- NOTE | 2019-07-02 19:22 | NUR ---
RECEIVED PT IN STABLE CONDITION FROM AM NURSE. AAO.4 WITH NO C/O ANY DISCOMFORT NOTED. TELE PT. WITH HEPARIN DRIP STILL INFUSING ON THE RT HAND G322. NO C/O ANY PAIN NOTED. PLAN OF CARE DISCUSSED AN VERBALIZED UNDERSTANDING. BED ON LOW POSITION. CALL LIGHT WITHIN REACH, FREQ ROUNDS NEEDED. SIDE RAILS UP X2. WILL CONTINUE TO MONITOR.
--- NOTE | 2019-07-02 20:30 | NUR ---
TRANSPORT TO NEUROLOGICAL SURGERY TEACHER PT @0220 PER TRANSFER DEPT FROM [facility].
--- NOTE | 2019-07-02 20:46 | NUR ---
PT FOR TRANSFER TO [facility]. CALLED OSMAN ORTEGA WHO IS GOING TO RECEIVED AND TAKE CARE OF PT. REPORT GIVEN TO HIM.
[2019-07-02] MEDS ORDERED: OLANZapine 2.5 MG TAB PO SCH (21:00)
[2019-07-02] MEDS: AMIODARONE 200 MG TAB PO SCH (21:37)
--- NOTE | 2019-07-02 21:50 | NUR ---
PT IS AWAKE,ALERT AND ORIENTED X4 AT THIS TIME. DISCHARGE PAPERS SIGNED BY PT. VERBALIZED UNDERSTANDING OF THE TRANSFER.
--- NOTE | 2019-07-02 22:20 | NUR ---
RT HAND IV ACCESS DRESSING CHANGED. PT TO BE TRANSFERRED WITH HEPARIN DRIP. [facility] TRANSPORT CAME AND GAVE REPORT TO OSMAN GR . ALL DISCHARGE PAPERS IN POCKET WITH POLST PINK FORM, PERSONAL BELONGINGS AND CD WITH PT . PT IN STABLE CONDITION UPON TRANSFER.
[2019-07-09] MEDS ORDERED: AMIODARONE 200 MG TAB PO SCH (09:00)
== END 2019-07-02 22:20 | disposition short-term general hospital (02) | DRG 280 ==
LOC: MED 19:47 → MTU 07-01 00:30
PROVIDERS: ADMIT General Practice; ATTEND General Practice
DX: I21.3 ST elevation (STEMI) myocardial infarction of unspecified site (principal); I50.43 Acute on chronic combined systolic (congestive) and diastolic (congestive) heart failure; I26.99 Other pulmonary embolism without acute cor pulmonale; N39.0 Urinary tract infection, site not specified; J96.10 Chronic respiratory failure, unspecified whether with hypoxia or hypercapnia; I48.92 Unspecified atrial flutter; E44.0 Moderate protein-calorie malnutrition; I48.91 Unspecified atrial fibrillation; J44.9 Chronic obstructive pulmonary disease, unspecified; F41.9 Anxiety disorder, unspecified; F03.90 Unspecified dementia, unspecified severity, without behavioral disturbance, psychotic disturbance, mood disturbance, and anxiety; I11.0 Hypertensive heart disease with heart failure; F32.9 Major depressive disorder, single episode, unspecified; Z66 Do not resuscitate; D50.9 Iron deficiency anemia, unspecified; E02 Subclinical iodine-deficiency hypothyroidism; R13.10 Dysphagia, unspecified; K57.90 Diverticulosis of intestine, part unspecified, without perforation or abscess without bleeding; M85.80 Other specified disorders of bone density and structure, unspecified site; Z86.73 Personal history of transient ischemic attack (TIA), and cerebral infarction without residual deficits; Z88.6 Allergy status to analgesic agent; Z88.8 Allergy status to other drugs, medicaments and biological substances; Z79.899 Other long term (current) drug therapy; Z95.4 Presence of other heart-valve replacement; Z79.01 Long term (current) use of anticoagulants; Z87.891 Personal history of nicotine dependence; Z68.26 Body mass index [BMI] 26.0-26.9, adult
CPT/HCPCS: 36415; 71045; 71275; 80048; 80053; 80305; 81001; 83036; 83540; 83605; 83690; 83735; 83880; 84100; 84439; 84443; 84484; 85025; 85379; 85610; 85730; 87040; 87081; 87086; 87186; 93005; 97112; 97116; 97161-GP; 99285; J0696; J1644; J1940; J7042; J7060; Q0092; Q9967